=== PATIENT | female | born 1950 | race Caucasian/White ===

== ENCOUNTER 2018-12-03 14:58 | Outpatient (CLI) | payer MEDICARE, BC ==
--- NOTE | 2018-12-14 14:43 | Mammography Report ---
Reason: SCREENING MAMMO Procedure Date: 12/03/2018 Accession Number: [id number] / [id number] Procedure: WINTER - Screening Mammo w/Ricardo CPT Code: FULL RESULT: EXAM: Screening Mammo w/Ricardo DATE: 12/03/2018 3:35 PM CLINICAL HISTORY: Routine screening TECHNIQUE: (B) - Bilateral CC and MLO views were obtained. COMPARISON: 11/22/2015, 09/27/2014, 10/08/2013 and 09/23/2013 PARENCHYMAL PATTERN: (A) - The breasts demonstrate scattered fibroglandular densities bilaterally. FINDINGS: No significant interval change. There are no suspicious masses, calcifications, or areas of distortion. A left breast biopsy clip is stable. IMPRESSION: Negative examination. BI-RADS category 1. RECOMMENDATION: (ANNUAL) - Recommend routine annual screening mammography. BI-RADS CATEGORY: (1) - Negative. STANDARD QUALIFYING STATEMENTS: 1. This examination was not reviewed with the aid of Computer-Aided Detection (CAD). 2. A negative or benign imaging report should not preclude biopsy if clinically suspicious findings are present. 3. Dense breasts may obscure an underlying neoplasm. 4. This examination was reviewed with the aid of 3D breast imaging (tomosynthesis).
== END 2018-12-03 14:59 | disposition home or self-care (01) ==
LOC: DI 14:58
PROVIDERS: ATTEND Nurse Practitioner
DX: Z12.31 Encounter for screening mammogram for malignant neoplasm of breast (principal)
CPT/HCPCS: 77063; 77067

== ENCOUNTER 2018-12-03 15:02 | Outpatient (CLI) | payer MEDICARE, BC ==
[2018-12-03 16:33] LABS: THYROID STIMULATING HORMONE 3.57 uIU/mL (0.34-5.60)
[2018-12-03 16:36] LABS: FREE T4 (FREE THYROXINE) 0.79 ng/dL (0.58-1.64)
== END 2018-12-03 15:03 | disposition home or self-care (01) ==
LOC: LAB 15:02
PROVIDERS: ATTEND Nurse Practitioner
DX: R94.6 Abnormal results of thyroid function studies (principal)
CPT/HCPCS: 36415; 84439; 84443; 84481

== ENCOUNTER 2020-07-03 07:31 | Outpatient (CLI) | payer MEDICARE, BC ==
[2020-07-03 12:58] LABS: ALBUMIN 4.2 g/dL (3.2-5.5); ALBUMIN/GLOBULIN RATIO 1.4 (1.0-2.2); ALKALINE PHOSPHATASE 88 IU/L (42-121); ALT ALANINE AMINOTRANSFERASE 21 IU/L (10-60); AST ASPARTATE AMINOTRANSFERASE 20 IU/L (10-42); BILIRUBIN,TOTAL 0.5 mg/dL (0.2-1.0); BUN - BLOOD UREA NITROGEN 16 mg/dL (6-20); CARBON DIOXIDE - CO2 25 mmol/L (21-32); CHLORIDE 106 mmol/L (101-111); CHOL/HDL RATIO 3.7 (<4.4); CHOLESTEROL 216 mg/dL; CREATININE 0.9 mg/dL (0.4-1.0); GFR - MDRD 62 (>89); GLUCOSE 112 mg/dL (70-100); HDL CHOLESTEROL 58 mg/dL; LDL CHOLESTEROL,CALCULATED 126 mg/dL; LDL/HDL RATIO 2.2 (<4.4); POTASSIUM 4.2 mmol/L (3.5-5.0); SODIUM 138 mmol/L (135-145); TOTAL PROTEIN 7.2 g/dL (6.7-8.2); TRIGLYCERIDES 158 mg/dL; VLDL CHOLESTEROL 32 mg/dL
[2020-07-03 13:09] LABS: BASOPHILS # (AUTO) 0.1 10^3/uL (0.0-0.1); BASOPHILS % (AUTO) 1.1 %; EOSINOPHILS # (AUTO) 0.4 10^3/uL (0.0-0.7); EOSINOPHILS % (AUTO) 7.5 %; HCT - HEMATOCRIT 43.7 % (37.0-47.0); HGB - HEMOGLOBIN 14.4 g/dL (12.0-16.0); LYMPHOCYTES # (AUTO) 1.6 10^3/uL (1.5-3.5); LYMPHOCYTES % (AUTO) 28.2 %; MEAN CORPUSCULAR HEMOGLOBIN 29.8 pg (27.0-31.0); MEAN CORPUSCULAR VOLUME 90.3 fL (81.0-99.0); MONOCYTES # (AUTO) 0.3 10^3/uL (0.0-1.0); NEUTROPHILS # (AUTO) 3.1 10^3/uL (1.5-6.6); PLT - PLATELET COUNT 231 10^3/uL (130-450); RED BLOOD COUNT 4.84 10^6/uL (4.20-5.40); RED CELL DISTRIBUTION WIDTH 12.8 % (12.0-15.0); WHITE BLOOD COUNT 5.5 x10^3/uL (4.8-10.8)
[2020-07-03 13:18] LABS: THYROID STIMULATING HORMONE 5.78 uIU/mL (0.34-5.60)
[2020-07-03 13:20] LABS: FREE T3 2.77 pg/mL (2.5-3.9); FREE T4 (FREE THYROXINE) 0.83 ng/dL (0.58-1.64)
--- OUTSIDE RECORDS SUMMARY | 2020-07-05 02:54 | EXTERNAL MEDICAL SUMMARY RPT | Continuity of Care Document ---
:1950 Demographics Phone Unavailable Preferred Language Unknown Marital Status Unknown [employer] Affiliation Unknown Race Unknown Ethnic Group Unknown Author Organization [place] Address [address] [id number] Phone Care Team Providers Name Role Phone CLIPPER MACHINE Unavailable Unavailable Problems date description facility [id number] CBC W/Diff/Plt All [id number] COMPREHENSIVE METABOLIC PANEL All [id number] LIPIDS SCREEN All [id number] THYROXINE, FREE (FT4) All [id number] TRIIODOTHYRONINE (Free T3) All [id number] TSH All Procedures date description facility [id number] COMPREHENSIVE METABOLIC PANEL All date description facility [id number] LIPIDS SCREEN All date description facility [id number] THYROXINE, FREE (FT4) All date description facility [id number] TSH All date description facility [id number] TRIIODOTHYRONINE (Free T3) All date description facility [id number] CBC W/Diff/Plt All Results test status date ordered by attending specimen darwin e ALBUMIN_GLOBULIN_RATIO unknown [id number] unknown unknown unknown T unknown [id number] unknown unknown unknown T unknown [id number] unknown unknown unknown ALKALINE_PHOSPHATASE unknown [id number] unknown unknown un known ALT_ALANINE_AMINOTRANS unknown [id number] unknown unknown unknown FERASE T unknown [id number] unknown unknown unknown T unknown [id number] unknown unknown unknown T unknown [id number] unknown unknown unknown T unknown [id number] unknown unknown unknown BASOPHILS_AUTO_ unknown [id number] unknown unknown unknown BILIRUBIN_TOTAL unknown 03427139 unknown unknown unknown T unknown [id number] unknown unknown unknown T unknown [id number] unknown unknown unknown CHOL_HDL_RATIO unknown 16965036 unknown unknown unknown T unknown [id number] unknown unknown unknown T unknown [id number] unknown unknown unknown T unknown 76211320 unknown unknown unknown T unknown [id number] unknown unknown unknown T unknown [id number] unknown unknown unknown T unknown [id number] unknown unknown unknown EOSINOPHILS_AUTO_ unknown 74126513 unknown unknown unkno wn T unknown 39036353 unknown unknown unknown FREE_T4_FREE_THYROXINE unknown [id number] unknown unknown unknown _ T unknown [id number] unknown unknown unknown GFR_-_MDRD unknown 72304737 unknown unknown unknown T unknown 88507091 unknown unknown unknown T unknown [id number] unknown unknown unknown T unknown 19749599 unknown unknown unknown T unknown [id number] unknown unknown unknown T unknown 69761561 unknown unknown unknown T unknown 07068936 unknown unknown unknown T unknown 80400857 unknown unknown unknown LDL_CHOLESTEROL_CALCUL unknown 32517157 unknown unknown unknown ATED LDL_HDL_RATIO unknown 47792302 unknown unknown unknown T unknown 18898717 unknown unknown unknown T unknown [id number] unknown unknown unknown T unknown 05830998 unknown unknown unknown LYMPHOCYTES_AUTO_ unknown 86533197 unknown unknown unkno wn T unknown 57531444 unknown unknown unknown T unknown 04836056 unknown unknown unknown T unknown [id number] unknown unknown unknown T unknown 44844841 unknown unknown unknown MONOCYTES_AUTO_ unknown 18183970 unknown unknown unknown T unknown 40574626 unknown unknown unknown T unknown 85727637 unknown unknown unknown T unknown 21778820 unknown unknown unknown NEUTROPHILS_AUTO_ unknown [id number] unknown unknown unkno wn T unknown [id number] unknown unknown unknown T unknown 70323765 unknown unknown unknown T unknown [id number] unknown unknown unknown T unknown 22507102 unknown unknown unknown T unknown 72789823 unknown unknown unknown T unknown [id number] unknown unknown unknown T unknown 69005009 unknown unknown unknown T unknown 46699029 unknown unknown unknown T unknown 99254566 unknown unknown unknown red_blood_cell_distrib unknown 25751417 unknown unknown unknown ution_width mean_corpuscular_hemog unknown 29518384 unknown unknown unknown lobin_RBC calcium_serum unknown 78238831 unknown unknown unknown chloride_serum unknown 02438719 unknown unknown unknown cholesterol_serum unknown 18071669 unknown unknown unkno wn albumin_globulin_ratio unknown 09457540 unknown unknown unknown _serum sodium_serum unknown 96586493 unknown unknown unknown FREE_T4 unknown 12103712 unknown unknown unknown mean_corpuscular_hemog unknown 60261970 unknown unknown unknown lobin_concentration_rbc Alanine_aminotransfera unknown 66991184 unknown unknown unknown se_Enzymatic_activity_v olume_in_Serum_or_Plasm a Albumin_Mass_volume_in unknown 03963824 unknown unknown unknown _Serum_or_Plasma Albumin_Globulin_Mass_ unknown 50910829 unknown unknown unknown Ratio_in_Serum_or_Plasm a Alkaline_phosphatase_E unknown 48194750 unknown unknown unknown nzymatic_activity_volum e_in_Blood creatinine_serum unknown 89888552 unknown unknown unknow n Anion_gap_4_in_Serum_o unknown 81805920 unknown unknown unknown r_Plasma Aspartate_aminotransfe unknown 93609891 unknown unknown unknown rase_Enzymatic_activity _volume_in_Serum_or_Pla sma Bilirubin.total_Mass_v unknown 35682006 unknown unknown unknown olume_in_Serum_or_Plasm a albumin_serum unknown 64004049 unknown unknown unknown Calcium_Moles_volume_i unknown 52707831 unknown unknown unknown n_Serum_or_Plasma carbon_dioxide_serum_t unknown 59485883 unknown unknown unknown otal Chloride_Moles_volume_ unknown 56100960 unknown unknown unknown in_Serum_or_Plasma Cholesterol_in_HDL_Mas unknown 64656270 unknown unknown unknown s_volume_in_Serum_or_Pl asma_-_mg_dL Cholesterol_in_LDL_Mas unknown 96334813 unknown unknown unknown s_volume_in_Serum_or_Pl asma_-_mg_dL Cholesterol_in_VLDL_Ma unknown 74902520 unknown unknown unknown ss_volume_in_Serum_or_P lasma Cholesterol_Mass_volum unknown 15066880 unknown unknown unknown e_in_Serum_or_Plasma_-_ mg_dL cholesterol_HDL_ratio_ unknown 26481676 unknown unknown unknown serum_percent Creatinine_Mass_volume unknown 08442225 unknown unknown unknown _in_Serum_or_Plasma Globulin_Mass_volume_i unknown 88412307 unknown unknown unknown n_Serum Glucose_Mass_volume_in unknown 02914560 unknown unknown unknown _Serum_or_Plasma cholesterol_HDL_ratio_ unknown 02090387 unknown unknown unknown serum_percent neutrophil_count_blood unknown 34648039 unknown unknown unknown lymphocyte_count_blood unknown 24758645 unknown unknown unknown monocyte_count_blood unknown 88815483 unknown unknown un known basophil_count_blood unknown 16594762 unknown unknown un known LDL_HDL_low-density_li unknown 46777873 unknown unknown unknown poprotein_high-density_ lipoprotein_ratio very_low_density_lipop unknown 84751656 unknown unknown unknown roteins Triglyceride_Mass_volu unknown 52607272 unknown unknown unknown me_in_Serum_or_Plasma_- _mg_dL HDL_cholesterol_serum unknown 14924100 unknown unknown u nknown mean_platelet_volume unknown 24594273 unknown unknown un known anion_gap_serum unknown 95557848 unknown unknown unknown eosinophil_count_blood unknown 47691229 unknown unknown unknown Protein_Mass_volume_in unknown 47904858 unknown unknown unknown _Serum_or_Plasma Sodium_Moles_volume_in unknown 33359536 unknown unknown unknown _Serum_or_Plasma alkaline_phosphatase_s unknown 62816248 unknown unknown unknown kaleb LDL_cholesterol_serum unknown 91668666 unknown unknown u nknown globulin_serum unknown 77477293 unknown unknown unknown Urea_nitrogen_Mass_vol unknown 41899497 unknown unknown unknown ume_in_Serum_or_Plasma mean_corpuscular_volum unknown 40749576 unknown unknown unknown e_RBC potassium_blood unknown 33366934 unknown unknown unknown blood_glucose unknown 84442896 unknown unknown unknown protein_total_serum unknown 43109653 unknown unknown unk nown aspartate_aminotransfe unknown 18982538 unknown unknown unknown rase_SGOT_serum carbon_dioxide_serum_t unknown 09066765 unknown unknown unknown otal alanine_aminotransfera unknown 97050693 unknown unknown unknown se_SGPT_serum bilirubin_serum_total unknown 82522324 unknown unknown u nknown TSH_thyroid_stimulatin unknown 53986431 unknown unknown unknown g_hormone_with_reflex_F T4 triglyceride_serum_fas unknown 91005838 unknown unknown unknown ting Hematocrit_Volume_Frac unknown 49131715 unknown unknown unknown tion_of_Blood_by_Automa ted_count Glomerular_filtration_ unknown 83240858 unknown unknown unknown rate_1.73_sq_M.predicte d_among_non-blacks_Volu me_Rate_Area_in_Serum_P lasma_or_Blood_by_Creat inine-based_formula_MDR D_ potassium_blood unknown 32800873 unknown unknown unknown hematocrit_blood unknown 63056190 unknown unknown unknow n hemoglobin_blood unknown 29998895 unknown unknown unknow n platelet_count unknown 48607378 unknown unknown unknown Glomerular_Filtration_ unknown 17331929 unknown unknown unknown rate Leukocytes_volume_in_B unknown 27500022 unknown unknown unknown lood_by_Automated_count erythrocyte_RBC_count unknown 10560796 unknown unknown u nknown leukocyte_count_blood unknown 73395445 unknown unknown u nknown Basophils_volume_in_Bl unknown 58058087 unknown unknown unknown ood_by_Manual_count eosinophil_count_blood unknown 02780858 unknown unknown unknown Hemoglobin_Mass_volume unknown 34967610 unknown unknown unknown _in_Blood lymphocyte_count_blood unknown 25240462 unknown unknown unknown monocyte_count_blood unknown 06617243 unknown unknown un known neutrophil_count_blood unknown 32302699 unknown unknown unknown Platelet_mean_volume_E unknown 55139210 unknown unknown unknown ntitic_volume_in_Blood_ by_Rees[place]ias Platelets_volume_in_Bl unknown 31111744 unknown unknown unknown ood_by_Automated_count MCH_Entitic_mass_by_Au unknown 35452821 unknown unknown unknown tomated_count MCV_Entitic_volume_by_ unknown 53072199 unknown unknown unknown Automated_count Erythrocyte_distributi unknown 21922471 unknown unknown unknown on_width_Ratio_by_Autom ated_count Erythrocytes_volume_in unknown 20200703 unknown unknown unknown _Blood_by_Automated_cou nt urea_nitrogen_blood unknown 96277423 unknown unknown k [facility] facility observation status value reference units lab code abn ormal line range notes All ALBUMIN_GLOB unknown 1.4 unknown AGRATIO unknow n unknown ULIN_RATIO All T unknown 4.2 unknown g/dL ALB unknown unkn own All T unknown 88 unknown U/L ALK_PHOS unknown un known All ALKALINE_PHO unknown 88 unknown U/L ALP unknown unknown SPHATASE All ALT_ALANINE_ unknown 21 unknown U/L ALT unknown unknown AMINOTRANSFER ASE All T unknown 21 unknown U/L ALT_SGPT unknown un known _ All T unknown 20 unknown U/L AST unknown unkn own All T unknown 1.4 unknown A_G_RATI unknown un known O All T unknown 0.1 10 unknown BASO_AUT unknown un known 3/UL O_ All BASOPHILS_AU unknown 0.1 10 unknown BA_ unknown unknown TO_ 3/UL All BILIRUBIN_TO unknown 0.5 unknown mg/dL BILIT unknown unknown FRANK All T unknown 16 unknown mg/dL BUN unknown unkn own All T unknown 9.0 unknown mg/dL CA unknown unkn own All CHOL_HDL_RAT unknown 3.7 unknown CHLHDL unknown unknown IO All T unknown 216 unknown mg/dL CHOL unknown unkn own All T unknown 3.7 unknown CHOL_HDL unknown un known _RATIO All T unknown 106 unknown mmol/L CL unknown unkn own All T unknown 25 unknown mmol/L CO2 unknown unkn own All T unknown 0.9 unknown mg/dL CREAT unknown unkn own All T unknown 0.4 10 unknown EOS_AUTO unknown un known 3/UL _ All EOSINOPHILS_ unknown 0.4 10 unknown EO_ unknown unknown AUTO_ 3/UL All T unknown 0.83 unknown FREE_T4 unknown unk nown All FREE_T4_FREE unknown 0.83 unknown FT4 unknown unknown _THYROXINE_ All T unknown 7.0 unknown GAP unknown unkn own All GFR_-_MDRD unknown 62 unknown mL/min GFR unknown unknown All T unknown 62 unknown mL/min GFR_-_MD unknown un known RD All T unknown 3.0 unknown GLOB unknown unkn own All T unknown 112 unknown mg/dL GLU unknown unkn own All T unknown 43.7 unknown % HCT unknown unkn own All T unknown 58 unknown mg/dL HDL unknown unkn own All T unknown 14.4 unknown g/dL HGB unknown unkn own All T unknown 4.2 unknown meq/L K unknown unkn own All LDL_CHOLESTE unknown 126 unknown mg/dL LDLC unknown unknown ROL_CALCULATE D All LDL_HDL_RATI unknown 2.2 unknown LDLHDL unknown unknown O (?) All T unknown 126 unknown mg/dL LDL_CALC unknown un known All T unknown 2.2 unknown LDL_HDL_ unknown un known (?) RATIO All T unknown 1.6 10 unknown LYMPH_AU unknown un known 3/UL TO_ All LYMPHOCYTES_ unknown 1.6 10 unknown LY_ unknown unknown AUTO_ 3/UL All T unknown 29.8 unknown pg MCH unknown unkn own All T unknown 33.0 unknown g/dL MCHC unknown unkn own All T unknown 90.3 unknown fL MCV unknown unkn own All T unknown 0.3 10 unknown MONO_AUT unknown un known 3/UL O_ All MONOCYTES_AU unknown 0.3 10 unknown MO_ unknown unknown TO_ 3/UL All T unknown 11.0 unknown fL MPV unknown unkn own All T unknown 138 unknown mmol/L NA unknown unkn own All T unknown 3.1 10 unknown NEUT_AUT unknown un known 3/UL O_ All NEUTROPHILS_ unknown 3.1 10 unknown NE_ unknown unknown AUTO_ 3/UL All T unknown 231 10 unknown PLT unknown unkn own 3/UL All T unknown 7.2 unknown g/dL PRO_TOTA unknown un known L All T unknown 4.84 unknown RBC unknown unkn own 10 6/UL All T unknown 12.8 unknown % RDW unknown unkn own All T unknown 0.5 unknown mg/dL TOTAL_BI unknown un known LI All T unknown 158 unknown mg/dL TRIG unknown unkn own All T unknown 5.78 unknown m[iU]/ TSH unknown unkn own L All T unknown 32 unknown mg/dL VLDL unknown unkn own All T unknown 5.5 unknown WBC unknown unkn own X10 3/UL All red_blood_ce unknown 12.8 unknown % _1030 unknown unknown ll_distributi on_width All mean_corpusc unknown 29.8 unknown pg _1031 unknown unknown ular_hemoglob in_RBC All calcium_seru unknown 9.0 unknown mg/dL _11 unknown unknown m All chloride_ser unknown 106 unknown mmol/L _13 unknown unknown um All cholesterol_ unknown 216 unknown mg/dL _14 unknown unknown serum All albumin_glob unknown 1.4 unknown _146 unknown unknown ulin_ratio_se rum All sodium_serum unknown 138 unknown mmol/L _159 unknown unknown All FREE_T4 unknown 0.83 unknown _169754 unknown un known All mean_corpusc unknown 33.0 unknown g/dL _17029 unknown unknown ular_hemoglob in_concentrat ion_rbc All Alanine_amin unknown 21 unknown U/L _1742-6 unknow n unknown otransferase_ Enzymatic_act ivity_volume_ in_Serum_or_P lasma All Albumin_Mass unknown 4.2 unknown g/dL _1751-7 unknow n unknown _volume_in_Se rum_or_Plasma All Albumin_Glob unknown 1.4 unknown _1759-0 unknow n unknown ulin_Mass_Rat io_in_Serum_o r_Plasma All Alkaline_pho unknown 88 unknown U/L _1783-0 unknow n unknown sphatase_Enzy matic_activit y_volume_in_B lood All creatinine_s unknown 0.9 unknown mg/dL _18 unknown unknown kaleb All Anion_gap_4_ unknown 7.0 unknown _1863-0 unknow n unknown in_Serum_or_P lasma All Aspartate_am unknown 20 unknown U/L _1920-8 unknow n unknown inotransferas e_Enzymatic_a ctivity_volum e_in_Serum_or _Plasma All Bilirubin.to unknown 0.5 unknown mg/dL _1974- unknow n unknown tal_Mass_volu me_in_Serum_o r_Plasma All albumin_seru unknown 4.2 unknown g/dL _2 unknown unknown m All Calcium_Mole unknown 9.0 unknown mg/dL _1999-10 unknow n unknown s_volume_in_S erum_or_Plasm a All carbon_dioxi unknown 25 unknown mmol/L _2027-11 unknow n unknown de_serum_tota l All Chloride_Mol unknown 106 unknown mmol/L _ unknow n unknown es_volume_in_ Serum_or_Plas ma All Cholesterol_ unknown 58 unknown mg/dL _2084-11 unknow n unknown in_HDL_Mass_v olume_in_Seru m_or_Plasma_- _mg_dL All Cholesterol_ unknown 126 unknown mg/dL _2088-03 unknow n unknown in_LDL_Mass_v olume_in_Seru m_or_Plasma_- _mg_dL All Cholesterol_ unknown 32 unknown mg/dL _2090-09 unknow n unknown in_VLDL_Mass_ volume_in_Ser um_or_Plasma All Cholesterol_ unknown 216 unknown mg/dL _2092- unknow n unknown Mass_volume_i n_Serum_or_Pl asma_-_mg_dL All cholesterol_ unknown 3.7 unknown _2094-10 unknow n unknown HDL_ratio_ser um_percent All Creatinine_M unknown 0.9 unknown mg/dL _0-0 unknow n unknown ass_volume_in _Serum_or_Pla sma All Globulin_Mas unknown 3.0 unknown _6-6 unknow n unknown s_volume_in_S kaleb All Glucose_Mass unknown 112 unknown mg/dL _2344-7 unknow n unknown _volume_in_Se rum_or_Plasma All cholesterol_ unknown 3.7 unknown _2404 unknown unknown HDL_ratio_ser um_percent All neutrophil_c unknown 3.1 10 unknown _2418 unknown unknown ount_blood 3/UL All lymphocyte_c unknown 1.6 10 unknown _2420 unknown unknown ount_blood 3/UL All monocyte_cou unknown 0.3 10 unknown _2422 unknown unknown nt_blood 3/UL All basophil_cou unknown 0.1 10 unknown _2427 unknown unknown nt_blood 3/UL All LDL_HDL_low- unknown 2.2 unknown _25165 unknown unknown density_lipop (?) rotein_high-d ensity_lipopr otein_ratio All very_low_den unknown 32 unknown mg/dL _2548 unknown unknown sity_lipoprot eins All Triglyceride unknown 158 unknown mg/dL _2571-8 unknow n unknown _Mass_volume_ in_Serum_or_P lasma_-_mg_dL All HDL_choleste unknown 58 unknown mg/dL _26 unknown unknown rol_serum All mean_platele unknown 11.0 unknown fL _2784 unknown unknown t_volume All anion_gap_se unknown 7.0 unknown _279 unknown unknown rum All eosinophil_c unknown 0.4 10 unknown _285 unknown unknown ount_blood 3/UL All Protein_Mass unknown 7.2 unknown g/dL _2885-2 unknow n unknown _volume_in_Se rum_or_Plasma All Sodium_Moles unknown 138 unknown mmol/L _2951-2 unknow n unknown _volume_in_Se rum_or_Plasma All alkaline_pho unknown 88 unknown U/L _3 unknown unknown sphatase_seru m All LDL_choleste unknown 126 unknown mg/dL _30 unknown unknown rol_serum All globulin_ser unknown 3.0 unknown _3059 unknown unknown um All Urea_nitroge unknown 16 unknown mg/dL _3094-0 unknow n unknown n_Mass_volume _in_Serum_or_ Plasma All mean_corpusc unknown 90.3 unknown fL _315 unknown unknown ular_volume_R BC All potassium_bl unknown 4.2 unknown meq/L _3483 unknown unknown ood All blood_glucos unknown 112 unknown mg/dL _3565 unknown unknown e All protein_tota unknown 7.2 unknown g/dL _36 unknown unknown l_serum All aspartate_am unknown 20 unknown U/L _39 unknown unknown inotransferas e_SGOT_serum All carbon_dioxi unknown 25 unknown mmol/L _3962 unknown unknown de_serum_tota l All alanine_amin unknown 21 unknown U/L _40 unknown unknown otransferase_ SGPT_serum All bilirubin_se unknown 0.5 unknown mg/dL _43 unknown unknown rum_total All TSH_thyroid_ unknown 5.78 unknown m[iU]/ _43209 unknown unknown stimulating_h L ormone_with_r eflex_FT4 All triglyceride unknown 158 unknown mg/dL _44 unknown unknown _serum_fastin g All Hematocrit_V unknown 43.7 unknown % _4544-3 unknow n unknown olume_Fractio n_of_Blood_by _Automated_co unt All Glomerular_fi unknown 62 unknown mL/min _48642-3 unkno wn unknown ltration_rate _1.73_sq_M.pr edicted_among _non-blacks_V olume_Rate_Ar ea_in_Serum_P lasma_or_Bloo d_by_Creatini ne-based_form ula_MDRD_ All potassium_bl unknown 4.2 unknown meq/L _6298-4 unknow n unknown ood All hematocrit_b unknown 43.7 unknown % _64 unknown unknown lood All hemoglobin_b unknown 14.4 unknown g/dL _65 unknown unknown lood All platelet_cou unknown 231 10 unknown _66 unknown unknown nt 3/UL All Glomerular_F unknown 62 unknown mL/min _66455 unknown unknown iltration_rat e All Leukocytes_v unknown 5.5 unknown _6690-2 unknow n unknown olume_in_Bloo X10 d_by_Automate 3/UL d_count All erythrocyte_ unknown 4.84 unknown _67 unknown unknown RBC_count 10 6/UL All leukocyte_co unknown 5.5 unknown _68 unknown unknown unt_blood X10 3/UL All Basophils_vo unknown 0.1 10 unknown _705-4 unknown unknown lume_in_Blood 3/UL _by_Manual_co unt All eosinophil_c unknown 0.4 10 unknown _712-0 unknown unknown ount_blood 3/UL All Hemoglobin_M unknown 14.4 unknown g/dL _718-7 unknown unknown ass_volume_in _Blood All lymphocyte_c unknown 1.6 10 unknown _732-8 unknown unknown ount_blood 3/UL All monocyte_cou unknown 0.3 10 unknown _743-5 unknown unknown nt_blood 3/UL All neutrophil_c unknown 3.1 10 unknown _752-6 unknown unknown ount_blood 3/UL All Platelet_mea unknown 11.0 unknown fL _776-5 unknown unknown n_volume_Enti tic_volume_in _Blood_by_Ree s-[place]ias All Platelets_vo unknown 231 10 unknown _777-3 unknown unknown lume_in_Blood 3/UL _by_Automated _count All MCH_Entitic_ unknown 29.8 unknown pg _785-6 unknown unknown mass_by_Autom ated_count All MCV_Entitic_ unknown 90.3 unknown fL _787-2 unknown unknown volume_by_Aut omated_count All Erythrocyte_ unknown 12.8 unknown % _788-0 unknown unknown distribution_ width_Ratio_b y_Automated_c ount All Erythrocytes unknown 4.84 unknown _789-8 unknown unknown _volume_in_Bl 10 6/UL ood_by_Automa ted_count All urea_nitroge unknown 16 unknown mg/dL _9 unknown unknown n_blood Social History date description facility [id number]
== END 2020-07-03 07:32 | disposition home or self-care (01) ==
LOC: LAB.N 07:31
PROVIDERS: ATTEND Family Medicine
DX: Z00.00 Encounter for general adult medical examination without abnormal findings (principal); R94.6 Abnormal results of thyroid function studies
CPT/HCPCS: 36415; 80053; 80061; 83721; 84439; 84443; 84481; 85025

== ENCOUNTER 2020-08-24 09:43 | Outpatient (CLI) | payer MEDICARE, BC ==
--- NOTE | 2020-08-25 09:00 | Mammography Report ---
BILATERAL DIGITAL SCREENING MAMMOGRAM 3D/2D: 08/24/2020 CLINICAL: Routine screening. Comparison is made to exams dated: 12/03/2018 mammogram - [facility] and 11/22/2015 m ammogram - [facility]. There are scattered fibroglandular elements in both breasts. There is a biopsy clip in the left breast. No significant masses, calcifications, or other findings are seen in either breast. There has been no significant interval change. IMPRESSION: NEGATIVE There is no mammographic evidence of malignancy. A 1 year screening mammogram is recommended. This exam was interpreted at Station ID: [id number]. NOTE: For mammograms, a report in lay terms will be sent to the patient. Approximately 15% of breast malignancies will not be visualized mammographically. In the management of a palpable breast mass, a negative mammogram must not discourage biopsy of a clinically suspicious lesion. Electronically Signed By: Vinicio Sanford M.D. ar/penrad:08/24/2020 10:48:17 ACR BI-RADS Category 1: Negative 3341F PARENCHYMAL PATTERN: (A) - The breast(s) demonstrate(s) scattered fibroglandular densities. BI-RADS CATEGORY: (1) - 1 RECOMMENDATION: (ANNUAL) - Recommend routine annual screening mammography. [id number] 1 year screening LATERALITY: (B)
== END 2020-08-24 09:44 | disposition home or self-care (01) ==
LOC: DI 09:43
DX: Z12.31 Encounter for screening mammogram for malignant neoplasm of breast (principal)

== ENCOUNTER 2020-08-24 09:48 | Outpatient (CLI) | payer MEDICARE, BC ==
--- NOTE | 2020-08-24 13:38 | DEXA Report ---
PROCEDURE: Dexa Spine and/or Hip INDICATIONS: MENOPAUSE TECHNIQUE: Dual energy x-ray absorptiometry (DXA) was performed on a [employer] System. Regions measur ed are the AP Spine, femoral neck, and if needed forearm. COMPARISON: None. FINDINGS: Lumbar Spine: Bone Mineral Density 0.989 g/cm/cm,T score -1.6, mild to moderate osteopenia Left Hip: Bone Mineral Density 0.848 g/cm/cm,T score -1.3, mild osteopenia Left Femoral Neck: Bone Mineral Density 0.752 g/cm/cm, T score -2.1, moderate to severe osteopenia (T score greater or equal to -1.0: NORMAL) (T score from -1.1 to -2.4: OSTEOPENIA) (T score less than or equal to -2.5 to: OSTEOPOROSIS) Impression: Osteopenia most severe in the left femoral neck. Patients with diagnosis of osteoporosis or osteopenia should have regular bone mineral density assess ment. For those eligible for Medicare, routine testing is allowed once every 2 years. Testing frequ ency can be increased for patients who have rapidly progressing disease or for those who are receivin g medical therapy to restore bone mass. Reviewed by: Maddie Mota MD on 08/24/2020 1:37 PM PDT Approved by: Maddie Mota MD on 08/24/2020 1:37 PM PDT Station ID: [id number]
== END 2020-08-24 09:49 | disposition home or self-care (01) ==
LOC: DI 09:48
PROVIDERS: ATTEND Nurse Practitioner Family
DX: M85.89 Other specified disorders of bone density and structure, multiple sites (principal)

== ENCOUNTER 2022-06-12 07:15 | Outpatient (CLI) | payer MEDICARE, BC ==
[2022-06-12 12:09] LABS: BASOPHILS # (AUTO) 0.1 10^3/uL (0.0-0.1); BASOPHILS % (AUTO) 1.4 %; EOSINOPHILS # (AUTO) 0.4 10^3/uL (0.0-0.7); EOSINOPHILS % (AUTO) 8.2 %; HCT - HEMATOCRIT 45.1 % (37.0-47.0); HGB - HEMOGLOBIN 14.7 g/dL (12.0-16.0); LYMPHOCYTES # (AUTO) 1.7 10^3/uL (1.5-3.5); LYMPHOCYTES % (AUTO) 34.9 %; MEAN CORPUSCULAR HEMOGLOBIN 29.2 pg (27.0-31.0); MEAN CORPUSCULAR HGB CONC 32.6 g/dL (32.0-36.0); MEAN CORPUSCULAR VOLUME 89.5 fL (81.0-99.0); MEAN PLATELET VOLUME 10.7 fL (7.9-10.8); MONOCYTES # (AUTO) 0.3 10^3/uL (0.0-1.0); MONOCYTES % (AUTO) 5.5 %; NEUTROPHILS # (AUTO) 2.4 10^3/uL (1.5-6.6); NEUTROPHILS % (AUTO) 49.8 %; PLT - PLATELET COUNT 237 10^3/uL (130-450); RED BLOOD COUNT 5.04 10^6/uL (4.20-5.40); RED CELL DISTRIBUTION WIDTH 12.8 % (12.0-15.0); WHITE BLOOD COUNT 4.9 x10^3/uL (4.8-10.8)
[2022-06-12 12:20] LABS: ALBUMIN 4.2 g/dL (3.2-5.5); ALBUMIN/GLOBULIN RATIO 1.4 (1.0-2.2); ALKALINE PHOSPHATASE 80 IU/L (42-121); ALT ALANINE AMINOTRANSFERASE 19 IU/L (10-60); AST ASPARTATE AMINOTRANSFERASE 17 IU/L (10-42); BILIRUBIN,TOTAL 0.8 mg/dL (0.2-1.0); BUN - BLOOD UREA NITROGEN 18 mg/dL (6-20); CALCIUM 8.8 mg/dL (8.5-10.3); CARBON DIOXIDE - CO2 24 mmol/L (21-32); CHLORIDE 105 mmol/L (101-111); CHOL/HDL RATIO 3.1 (<4.4); CHOLESTEROL 227 mg/dL; CREATININE 0.8 mg/dL (0.4-1.0); GFR - MDRD 71 (>89); GLUCOSE 110 mg/dL (70-100); HDL CHOLESTEROL 73 mg/dL; LDL CHOLESTEROL,CALCULATED 136 mg/dL; LDL/HDL RATIO 1.9 (<4.4); SODIUM 136 mmol/L (135-145); TOTAL PROTEIN 7.3 g/dL (6.7-8.2); TRIGLYCERIDES 89 mg/dL; VLDL CHOLESTEROL 18 mg/dL
[2022-06-12 12:30] LABS: THYROID STIMULATING HORMONE 8.19 uIU/mL (0.34-5.60)
[2022-06-12 12:32] LABS: FREE T4 (FREE THYROXINE) 0.67 ng/dL (0.58-1.64)
== END 2022-06-12 07:16 | disposition home or self-care (01) ==
LOC: LAB.N 07:15
PROVIDERS: ATTEND Nurse Practitioner
DX: Z00.00 Encounter for general adult medical examination without abnormal findings (principal); R73.01 Impaired fasting glucose; E78.5 Hyperlipidemia, unspecified; R94.6 Abnormal results of thyroid function studies; T78.40XA Allergy, unspecified, initial encounter; R21 Rash and other nonspecific skin eruption
CPT/HCPCS: 36415; 80053; 80061; 83721; 84439; 84443; 85025

== ENCOUNTER 2023-07-01 07:18 | Outpatient (CLI) | payer MEDICARE, BC ==
[2023-07-01 12:00] LABS: BASOPHILS # (AUTO) 0.1 10^3/uL (0.0-0.1); EOSINOPHILS # (AUTO) 0.4 10^3/uL (0.0-0.7); EOSINOPHILS % (AUTO) 7.2 %; HCT - HEMATOCRIT 43.7 % (37.0-47.0); HGB - HEMOGLOBIN 14.5 g/dL (12.0-16.0); LYMPHOCYTES # (AUTO) 1.7 10^3/uL (1.5-3.5); LYMPHOCYTES % (AUTO) 32.6 %; MEAN CORPUSCULAR HEMOGLOBIN 29.8 pg (27.0-31.0); MEAN CORPUSCULAR HGB CONC 33.2 g/dL (32.0-36.0); MEAN CORPUSCULAR VOLUME 89.9 fL (81.0-99.0); MEAN PLATELET VOLUME 10.6 fL (7.9-10.8); MONOCYTES # (AUTO) 0.3 10^3/uL (0.0-1.0); MONOCYTES % (AUTO) 5.7 %; NEUTROPHILS # (AUTO) 2.7 10^3/uL (1.5-6.6); NEUTROPHILS % (AUTO) 53.3 %; PLT - PLATELET COUNT 254 10^3/uL (130-450); RED BLOOD COUNT 4.86 10^6/uL (4.20-5.40); WHITE BLOOD COUNT 5.1 x10^3/uL (4.8-10.8)
[2023-07-01 12:05] LABS: ESTIMATED AVERAGE GLUCOSE 117 mg/dL (70-100); HEMOGLOBIN A1c% 5.7 % (4.27-6.07)
[2023-07-01 12:22] LABS: ALBUMIN 4.3 g/dL (3.2-5.5); ALBUMIN/GLOBULIN RATIO 1.7 (1.0-2.2); ALKALINE PHOSPHATASE 120 IU/L (42-121); ALT ALANINE AMINOTRANSFERASE 16 IU/L (10-60); AST ASPARTATE AMINOTRANSFERASE 15 IU/L (10-42); BILIRUBIN,TOTAL 0.7 mg/dL (0.2-1.0); BUN - BLOOD UREA NITROGEN 18 mg/dL (6-20); CALCIUM 9.7 mg/dL (8.5-10.3); CARBON DIOXIDE - CO2 26 mmol/L (21-32); CHLORIDE 104 mmol/L (101-111); CHOL/HDL RATIO 3.2 (<4.4); CHOLESTEROL 209 mg/dL; CREATININE 0.8 mg/dL (0.6-1.3); GFR - MDRD 71 (>89); GLUCOSE 109 mg/dL (74-104); HDL CHOLESTEROL 65 mg/dL; LDL CHOLESTEROL,CALCULATED 113 mg/dL; LDL/HDL RATIO 1.7 (<4.4); POTASSIUM 4.3 mmol/L (3.5-4.5); SODIUM 135 mmol/L (135-145); TOTAL PROTEIN 6.8 g/dL (6.4-8.9); TRIGLYCERIDES 155 mg/dL (48-352); VLDL CHOLESTEROL 31 mg/dL
[2023-07-01 12:33] LABS: THYROID STIMULATING HORMONE 4.87 uIU/mL (0.34-5.60)
== END 2023-07-01 07:19 | disposition home or self-care (01) ==
LOC: LAB.N 07:18
PROVIDERS: ATTEND Nurse Practitioner
DX: Z00.00 Encounter for general adult medical examination without abnormal findings (principal); E78.5 Hyperlipidemia, unspecified; Z13.220 Encounter for screening for lipoid disorders; R73.01 Impaired fasting glucose; Z13.29 Encounter for screening for other suspected endocrine disorder
CPT/HCPCS: 36415; 80053; 80061; 83036; 83721; 84443; 85025

== ENCOUNTER 2023-09-22 13:38 | Outpatient (CLI) | payer BC, MEDICARE ==
--- NOTE | 2023-09-23 08:42 | Mammography Report ---
BILATERAL DIGITAL SCREENING MAMMOGRAM 3D/2D: 09/22/2023 CLINICAL: Routine screening. Comparison is made to exams dated: 08/24/2020 mammogram, [facility] 11/22/2015 mammogram, 09/27/2014 mammogram, and 10/08/2013 mammogram - [facility]. There are scattered areas of fibroglandular density in both breasts (category b / 25%-50% glandular t issue). There is a benign calcification in the left breast. There also is a biopsy clip in the left breast. No significant masses, calcifications, or other findings are seen in either breast. There has been no significant interval change. IMPRESSION: BENIGN There is no mammographic evidence of malignancy. A 1 year screening mammogram is recommended. Based on the Tyrer Cuzick model (a risk assessment model) the patient's lifetime risk is 4.8% and her 10 year risk is 3.3%. According to the ACR, ACS, and NCCN guidelines, an annual breast MRI exam von g with mammogram is recommended if the patient's lifetime risk is 20% or greater. This exam was interpreted at Station ID: [id number]. NOTE: For mammograms, a report in lay terms will be sent to the patient. Approximately 15% of breast malignancies will not be visualized mammographically. In the management of a palpable breast mass, a negative mammogram must not discourage biopsy of a clinically suspicious lesion. Electronically Signed By: Mike coker/maulik:09/22/2023 14:44:20 letter sent: No_Letter ACR BI-RADS Category 2: Benign Finding(s) 3342F PARENCHYMAL PATTERN: (A) - The breast(s) demonstrate(s) scattered fibroglandular densities. BI-RADS CATEGORY: (2) - 2 RECOMMENDATION: (ANNUAL) - Recommend routine annual screening mammography. [id number] 1 year screening LATERALITY: (B)
== END 2023-09-22 13:39 | disposition home or self-care (01) ==
LOC: DI 13:38
PROVIDERS: ATTEND Nurse Practitioner
DX: Z12.31 Encounter for screening mammogram for malignant neoplasm of breast (principal); R92.323 Mammographic fibroglandular density, bilateral breasts

== ENCOUNTER 2023-09-22 13:39 | Outpatient (CLI) | payer BC, MEDICARE ==
--- NOTE | 2023-09-23 12:50 | DEXA Report ---
PROCEDURE: Dexa Spine and/or Hip INDICATIONS: POST MENOPAUSAL TECHNIQUE: Dual energy x-ray absorptiometry (DEXA) was performed in the regions detailed below. COMPARISON: 08/24/2020 FINDINGS: Lumbar Spine: Bone Mineral Density 1.053 g/cm/cm,T score -1.1. Previously -1.6 Left Femoral Neck: Bone Mineral Density 0.800 g/cm/cm, T score -1.7. Previously -2.1 Left Total Hip: Bone Mineral Density 0.867 g/cm/cm,T score -1.1. Previously -1.3 (T score greater or equal to -1.0: NORMAL) (T score from -1.1 to -2.4: OSTEOPENIA) (T score less than or equal to -2.5 to: OSTEOPOROSIS) IMPRESSION: Improving osteopenia Patients with diagnosis of osteoporosis or osteopenia should have regular bone mineral density assess ment. For those eligible for Medicare, routine testing is allowed once every 2 years. Testing frequ ency can be increased for patients who have rapidly progressing disease or for those who are receivin g medical therapy to restore bone mass. Reviewed by: Edward Godinez MD on 09/23/2023 11:48 AM ORACIO Approved by: Edward Godinez MD on 09/23/2023 11:48 AM ORACIO Station ID: [id number]
== END 2023-09-22 13:40 | disposition home or self-care (01) ==
LOC: DI 13:39
PROVIDERS: ATTEND Nurse Practitioner
DX: M85.89 Other specified disorders of bone density and structure, multiple sites (principal); Z78.0 Asymptomatic menopausal state